=== PATIENT | female | born 1945 | race Caucasian/White ===

== ENCOUNTER → 2022-05-12 13:47 | Outpatient (CLI) | payer OTHER, SELFPAY ==
--- NOTE | 2022-05-12 | DI.ECHO.S_ITS ---
[facility] +---------+ : : [address] : : : : [id number] : : : : Phone: [phone]---------+ Echocardiogram Report + + :Name: MAURA KENNEDY Study Date: 05/12/2022 Height: 64 in : :[facility] ReadingLocation: Weight: 260 lb : : Gender: Female BSA: 2.2 m2 : :: 1945 Age: 76 yrs BP: 184/88 mmHg: :[facility] :Ordering Physician: PRISCILLA, : :LIAT Performed By: Alfredo Paniagua : :Referring: LIAT WELLS : + + Interpretation Summary 1) Normal left ventricular thickness, size, wall motion, and systolic function (EF 60-65%). 2) Normal right ventricular size and function. 3) No significant valvular abnormalities. 4) No prior Echo available for comparison. Procedure: A two-dimensional transthoracic echocardiogram with color flow and Doppler was performed. The study quality was technically adequate. There is no prior echocardiogram noted for this patient. The patient was in normal sinus rhythm during the exam. Left Ventricle: The left ventricle is normal in size and wall thickness. Left ventricular systolic function is normal. The ejection fraction is estimated to be 60-65%. There are no focal wall motion abnormalities. Diastolic function could not be accurately assessed due to unobtainable data. Right Ventricle: The right ventricle is normal in size and function. Atria: Both atria are normal in size. The interatrial septum grossly appears intact with no obvious evidence for an atrial septal defect. Mitral Valve: The mitral valve is normal in structure and function. There is no mitral regurgitation noted. Aortic Valve: The aortic valve is normal in structure and function. There is no aortic valve stenosis. No aortic regurgitation is present. Tricuspid Valve: The tricuspid valve is normal in structure and function. No tricuspid regurgitation. Pulmonary artery pressures cannot be estimated because of the lack of a measurable TR jet velocity. Pulmonic Valve: The pulmonic valve is normal in structure and function. There is a trace or physiologic amount of pulmonic regurgitation. Great Vessels: The aortic root is normal size. The dimensions of the ascending aorta are normal. The IVC is of normal diameter and collapses greater than 50% with a sniff. This suggests a low right atrial pressure of 3 mm Hg. Pericardium/ Pleura There is no pericardial effusion. There is no pleural effusion. MMode/2D Measurements & Calculations LVIDd: 4.6 cm LVOT diam: 1.9 cm LVIDs: 3.0 cm Ao root diam: 2.5 cm FS: 34.9 % asc Aorta Diam: 2.9 cm IVSd: 1.0 cm LVPWd: 1.0 cm LV reich. diameter/BSA (cm/m^2): 2.1 LV sys. diameter/BSA (cm/m^2): 1.4 LA A2 area: 15.2 cm2 RA long axis: 4.0 cm LA A4 area: 16.5 cm2 RA area: 9.8 cm2 LA length (vol): 5.4 cm RA vol: 20.3 ml LA vol: 39.2 ml RA : 9.3 ml/m2 LA vol index: 17.9 ml/m2 TAPSE: 3.2 cm Doppler Measurements & Calculations Ao V2 max: 141.3 cm/sec LVOT Max Pato: 107.2 cm/sec Ao V2 mean: 99.9 cm/sec LV V1 max P.6 mmHg Ao max P.0 mmHg LV V1 VTI: 25.8 cm Ao mean P.5 mmHg JANET(I,D): 2.2 cm2 Ao V2 VTI: 32.7 cm JANET(V,D): 2.1 cm2 sev ratio: 0.79 JANET indexed to BSA (cm^2/m^2): 1.0 MV E max pato: 83.1 cm/sec SV(LVOT): 72.7 ml MV A max pato: 96.7 cm/sec MV E/A: 0.86 Med Peak E' Pato: 5.6 cm/sec E/E' med: 14.8 Lat Peak E' Pato: 7.8 cm/sec E/E' lat: 10.7 E/e' average: 12.7 MV dec time: 0.25 sec Reading Physician:04:43 PM
--- NOTE | 2022-05-12 | DI.US.S_ITS ---
PROCEDURE: US CAROTID DOPPLER BI INDICATIONS: Hollenhorst plaque TECHNIQUE: Color and pulse Doppler interrogation was performed of both carotid systems, with image documentation and velocity measurements. COMPARISON: None. FINDINGS: Stenosis calculations are based on SRU (Society of Radiologists in Ultrasound) criteria. Right side: Brachial blood pressure: 152/71 mm Hg. Common carotid artery peak systolic velocity: 92 cm/sec. Internal carotid artery peak systolic velocity: 87 cm/sec. Internal carotid artery end diastolic velocity: 20 cm/sec. External carotid artery peak systolic velocity: 143 cm/sec. ICA/CCA peak systolic ratio: 1.0 . Jones scale imaging description: Mild scattered plaque Percent internal carotid artery stenosis: Less than 50% . Vertebral artery: Flow direction is antegrade. Left side: Brachial blood pressure: 155/76 mm Hg. Common carotid artery peak systolic velocity: 79 cm/sec. Internal carotid artery peak systolic velocity: 84 cm/sec. Internal carotid artery end diastolic velocity: 24 cm/sec. External carotid artery peak systolic velocity: 82 cm/sec. ICA/CCA peak systolic ratio: 1.1 . Jones scale imaging description: Mild scattered plaque Percent internal carotid artery stenosis: Less than 50% . Vertebral artery: Flow direction is antegrade. IMPRESSION: Less than 50% bilateral internal carotid artery stenosis. Dictated by: Dl Kelly [facility] Interpreted: Shanta Garcia MD on 05/12/2022 at 14:55 Transcribed by: MATT on 05/12/2022 at 14:56 Approved by: Shanta Garcia M.D. on 05/12/2022 at 15:15
== END ==
PROVIDERS: PCP Internal Medicine; Referring Provider Internal Medicine; Visit Provider Internal Medicine
DX: H34.219 Partial retinal artery occlusion, unspecified eye (principal); I65.23 Occlusion and stenosis of bilateral carotid arteries
CPT/HCPCS: 93306; 93880

== ENCOUNTER → 2022-06-09 12:00 | Outpatient (CLI) | payer OTHER, SELFPAY ==
[2022-06-09 12:57] LABS: COVID19 -Nasal RAPID Negative (Negative)
== END ==
PROVIDERS: PCP Internal Medicine; Visit Provider Surgery
DX: Z20.822 Contact with and (suspected) exposure to COVID-19 (principal); Z01.812 Encounter for preprocedural laboratory examination
CPT/HCPCS: 87635; C9803

== ENCOUNTER 2022-06-12 09:13 | Day surgery (SDC) | payer OTHER, SELFPAY ==
--- NOTE | 2022-06-12 | PATH_ITS ---
[facility] Accession Number: [id number] . 01 Material submitted: . PART A: gastrointestinal site - ANTRUM BIOPSY PART B: colon - ASCENDING COLON POLYPS . 01 Diagnosis: A. Stomach, Antrum, Biopsy: Antral mucosa with foveolar hyperplasia. Negative for Helicobacter by immunohistochemistry. Negative for intestinal metaplasia. Negative for dysplasia and malignancy. . B. 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 No evidence of malignancy or high grade dysplasia. MRV 06/15/2022 1751 Local . 01 Electronically signed: . Kallie Gilbert MD, Pathologist NPI- [id number] . 01 Gross description: . Part A: ANTRUM BIOPSY: Received in formalin are 3 fragment(s) of egan, soft tissue measuring 0.3 x 0.2 x 0.1 cm to 0.2 x 0.2 x 0.1 cm submitted entirely in 1 cassette(s) Part B: ASCENDING COLON POLYPS: Received in formalin are multiple fragment(s) of egan, soft tissue measuring 1.8 x 1.0 x 0.2 cm in aggregate submitted entirely in 1 cassette(s) /CPE 06/13/2022 0531 Local . 01 Microscopic: . A. An immunohistochemical stain was performed to evaluate for Helicobacter organisms and is negative. The control stain showed appropriate reactivity. . * This test was developed and its performance characteristics determined by [employer]. It has not been cleared or approved by the U.S. Food and Drug Administration. The FDA has determined that such clearance or approval is not necessary. This test is used for clinical purposes. It should not be regarded as investigational or for research. . 01 Pathologist provided ICD-10: D12.2, R11.2 . 01 CPT . 389851, 581184, D61028 Specimen Comment: A courtesy copy of this report has been sent to [phone] Performed at: 01 [facility] [address] [place] [id number] MD Anthony Blount MD Phone: [phone]
[2022-06-12 09:41] VITALS: BP 189/83; PULSE 73; RESP 15; TEMP 36; O2SAT 99; BMI 44.6
[2022-06-12] MEDS: SODIUM CHLORIDE 0.9% 1,000 ML 84 ML IV (10:02)
--- NOTE | 2022-06-12 10:02 | PM.HP.1 ---
History of Present Illness History of Present Illness Date Patient Seen: 06/12/22 Time Patient Seen: 10:02 Chief complaint: SDC Narrative: I reviewed my last note from May 21. No significant changes. Patient History Family & Social History Social History: household members none Tobacco & Substance use: Smoking Status Never smoker alcohol intake current alcohol intake frequency a few times a week Substance Use Type does not use Meds Home Medications and Allergies Home Medications Medication Instructions Recorded Confirmed Type atenolol 100 mg tablet mg 06/12/22 History losartan 50 mg tablet mg 06/12/22 History metformin 500 mg tablet mg 06/12/22 History rosuvastatin 20 mg tablet mg 06/12/22 History Allergies Allergy/AdvReac Type Severity Reaction Status Date / Time codeine Allergy Verified 06/12/22 09:45 Review of Systems Review of Systems ROS: Yes All systems reviewed with the patient and are negative except as otherwise documented Exam Vital Signs (past 8 hours): - 06/12/22 09:41 Temperature 96.8 F L Pulse Rate 73 Respiratory Rate 15 Blood Pressure 189/83 H Pulse Oximetry 99 Oxygen Delivery Method Room Air Oxygen Delivery Method Room Air Const General: cooperative HENMT Head: normal to inspection Eyes General: appearance normal, both eyes and all related structures Neck Neck: normal visual inspection Chest Chest: normal inspection of the chest Resp Effort & Inspection: normal respiratory effort Cardio Rate: regular rate GI Inspection: normal to inspection Skin General: no rashes or lesions noted Neuro General: patient alert and patient awake Extrem General: normal to inspection and no pedal edema Psych Appearance: grossly normal Assessment & Plan Assessment & Plan narrative: 76-year-old female with chronic intermittent nausea vomiting. She is a family history of colon cancer in 1 of her children. Both EGD and colonoscopy are pursued today. Time Spent With Patient Critical Care time: I spent a total of [] minutes of critical care time on this patient's care today; this time is exclusive of procedural time.
--- NOTE | 2022-06-12 10:04 | PM.PREOP ---
Pre-operative Note COVID-19 COVID-19 status: Negative Result date/Date tested (Pos, Neg/Pending): 06/09/22 Criteria for continued procedure: Possibility delay results in more complex future surgery or treatment Interval Note History & Physical reviewed/Exam performed by Physician: Yes Changes to H&P: No ASA Class (for procedural sedation): II
--- NOTE | 2022-06-12 11:51 | P.OP.EGD&C_ITS ---
Operative Date/Time/Diagnoses Date of procedure: 06/12/22 Time of procedure: 11:51 Pre-op diagnosis: Nausea vomiting family history of colon cancer Post-op diagnosis: same Procedure & Clinicians Study performed: EGD with biopsies and colonoscopy with hot snare polypectomy and Endoclip deployment Same procedure as scheduled: Yes Indications: Intermittent nausea vomiting. Family history of colon cancer. Surgeon: Gaurav Marx Procedure Notes SCOAP/Timeout: Done Procedure in detail: After the risks and benefits were explained, written and verbal informed consent was obtained. The patient was brought into the procedure room and placed into the left lateral decubitus position. Please see nurse drilling engineering manager notes for sedation details. The scope was introduced into the mouth through the bite block and advanced under direct visualization to the 2nd portion of the duodenum. The scope was slowly withdrawn carefully examining the mucosa for any defects or lesions. Retroflexed views were accomplished in the stomach. The stomach was decompressed, the scope was then removed from the patient who tolerated the procedure reasonably well. The patient was turned around a digital rectal examination accomplished. Grade 3 nonbleeding nonthrombosed hemorrhoids were noted. Scope was introduced into the rectum and advanced to the cecum as identified by the appendiceal orifice and ileocecal valve. The scope was slowly withdrawn to carefully examine the mucosa for any defects or lesions. Multiple direct views were made through the dentate line. The colon was decompressed scope removed from the patient who to lerated the procedure reasonably well. Pediatric colonoscope Bowel prep adequate Procedure time was prolonged 63 minutes total. (this was largely a function of the difficulty with the sizable polyp in the ascending colon and application of post polypectomy clips) Scope withdrawal time: 35 minutes Sedation minutes: 62 Complications: none Impression: 1. Duodenum: This was visually unremarkable from the bulb through to the 2nd portion. 2. Stomach: Mild gastropathy was appreciated with scattered erosive and nodular features especially throughout the antrum. Multiple biopsies were acquired for histopathology and exclusion of H pylori although I suspect this is NSAID induced injury. 3. Esophagus: The squamocolumnar junction correlated with the top of the gastric folds. GEJ was at 39 cm from the incisors. No acute erosive changes no stricturing no mass lesions. Subtle sliding hiatal hernia was noted. 4. Colon: Tortuous sigmoid. Diverticulosis was noted in the sigmoid. There was a diminutive polyp removed with cold snare in the ascending colon. There was a larger 12 mm polyp in the ascending colon 1 fold distal to the ileocecal valve. This was sessile. This was 12 mm by perhaps 6 mm. Initial polypectomy revealed that there was a small cuff of adenomatous mucosa that remained that must have slipped on the snare prior to application of the cautery. I therefore was required to remove the residual polyp with subsequent applications of the snare. I swapped out the 24 mm snare for the 10 mm snare to accomplish removal of this polyp. There were a couple of mildly oozing points of bleeding within the base of the polypectomy and I therefore applied 3 rotatable Endo clips to confirm hemostasis. The tiny polyp that was removed from mid ascending was lost among the fragments of larger polyp. Endoscopic diagnosis 1. Erosive gastropathy 2. Small sliding hiatal hernia 3. Colon polyps 4. Diverticulosis 5. Grade 3 hemorrhoids Post-procedure Plan for aftercare: 1. Await histopathology. 2. Try to minimize NSAID therapy. 3. Should symptoms of nausea vomiting persist in the absence of NSAIDs, further evaluation of gallbladder function would be appropriate. 4. Repeat colonoscopy 6 months considering the piecemeal removal of the ascending colon polyp. Disposition: PACU
[2022-06-12 11:55] VITALS: BP 131/65; PULSE 71; RESP 14; TEMP 36.4; O2SAT 99
[2022-06-12 12:00] VITALS: BP 166/71; PULSE 63; RESP 16; O2SAT 97
[2022-06-12 12:05] VITALS: BP 159/72; PULSE 60; RESP 17; O2SAT 98
[2022-06-12 12:15] VITALS: BP 164/74; PULSE 60; RESP 18; O2SAT 100
--- NOTE | 2022-06-12 12:22 | SUR.PHASEII ---
Discharge instructions reviewed with pt and she verbalized understanding.
== END 2022-06-12 12:33 | disposition home or self-care (01) ==
PROVIDERS: PCP Internal Medicine; Referring Provider Internal Medicine Gastroenterology; Visit Provider Internal Medicine Gastroenterology
PROC: 0DJ08ZZ Inspection of Upper Intestinal Tract, Via Natural or Artificial Opening Endoscopic (ICD-10-PCS; CPT 43235; principal; 2022-06-12 10:30)
PROC: 0DJD8ZZ Inspection of Lower Intestinal Tract, Via Natural or Artificial Opening Endoscopic (ICD-10-PCS; CPT 45378; 2022-06-12 10:30)
DX: D12.2 Benign neoplasm of ascending colon (principal); K29.70 Gastritis, unspecified, without bleeding; K44.9 Diaphragmatic hernia without obstruction or gangrene; K57.30 Diverticulosis of large intestine without perforation or abscess without bleeding; K64.2 Third degree hemorrhoids; R11.2 Nausea with vomiting, unspecified; Z80.0 Family history of malignant neoplasm of digestive organs
CPT/HCPCS: 45385; 43239; J2704; J3010

== ENCOUNTER → 2023-03-14 13:46 | Outpatient (CLI) | payer OTHER, SELFPAY ==
--- NOTE | 2023-03-16 02:23 | DI.NM.S_ITS ---
DATE OF SERVICE: 03/15/2023 INDICATIONS: Chest pain, with underlying diabetes mellitus, hypertension, hyperlipidemia, dizziness. RADIOPHARMACEUTICAL: 26.2 millicurie technetium-99m Myoview IV was injected at stress and 25.3 millicurie technetium-99m Myoview IV was injected at rest. CARDIAC STRESS: The patient underwent IV Lexiscan perfusion study as per standard protocol under the supervision of an attending staff. She remained hemodynamically stable. Resting blood pressure 150/84 and a heart rate 70 beats per minute. Baseline rhythm was sinus. During stress, no convincing ischemic changes seen. No significant arrhythmias seen. The patient has some shortness of breath. RAW DATA: There is a significant breast shadow seen. The patient's weight is 270 pounds. GATED STUDY: Resting LV ejection fraction 78% and stress LV ejection fraction 81% without any obvious wall motion abnormalities. Resting end-diastolic volume 95 mL. TID ratio 1.13, which is within normal limits. Lung/heart ratio 0.40, which is within normal limits. MYOCARDIAL PERFUSION SCAN: Stress supine, resting supine and stress prone images were compared to each other. Stress supine and resting supine images revealed small size, mildly decreased perfusion of mid to distal anterior wall which got completely resolved during stress prone images, however stress prone images developed new small size distal inferolateral defect that could be due to shifting breast tissue attenuation artifact. Overall, no convincing ischemia or infarction pattern. CONCLUSION: I will call this study a normal myocardial perfusion study with evidence of breast tissue attenuation artifact, as well as some shifting breast tissue attenuation artifact, without any convincing ischemia or infarction pattern. Preserved left ventricular function. No ischemic electrocardiographic changes. No significant arrhythmias. Overall, low-risk myocardial perfusion scan. Yesy Damon - VALENTIN/mylene/rigo doc#: [id number]/job#: [id number] dd: 03/15/2023 16:45:00 dt: 03/16/2023 02:09:00 DICTATING MD/COPIES TO: Suresh Mcintyre MD COPIES MNE: ANDRE;
== END ==
PROVIDERS: PCP Internal Medicine; Referring Provider Internal Medicine Cardiovascular Disease; Visit Provider Internal Medicine Cardiovascular Disease
DX: R07.89 Other chest pain (principal); E11.9 Type 2 diabetes mellitus without complications; I10 Essential (primary) hypertension; E78.5 Hyperlipidemia, unspecified; R42 Dizziness and giddiness
CPT/HCPCS: 78452; 93017; A9502; J2785

== ENCOUNTER 2024-06-04 11:39 | Day surgery (SDC) | payer OTHER, SELFPAY ==
--- NOTE | 2024-06-04 | PATH_ITS ---
[facility] Accession Number: [id number] No. of containers..01 Tissue . 01 Material submitted: . colon - RIGHT COLON BIOPSY . 01 Diagnosis: RIGHT COLON BIOPSY: Sessile serrated adenoma. [facility] 06/09/2024 1326 Local . 01 Electronically signed: . Anthony Blount MD, Pathologist NPI- [id number] . 01 Gross description: . Received in formalin with two patient identifiers and right colon, are two egan soft tissue fragments, 0.3 to 0.5 cm in greatest dimension. Submitted in A1. ([id number]) /MRV 06/09/20241325 Local . 01 Pathologist provided ICD-10: D12.2 . 01 CPT . 828501 Specimen Comment: A courtesy copy of this report has been sent to [phone] Performed at: [address] [id number] MD Anthony Blount MD Phone: [phone]
[2024-06-04 12:17] VITALS: BP 176/92; PULSE 97; RESP 14; TEMP 36.1; O2SAT 98
[2024-06-04] MEDS: LACTATED RINGERS 1,000 ML 42 ML IV (12:40)
--- NOTE | 2024-06-04 12:43 | PM.OP.COLON ---
Operative Date/Time/Diagnoses Date of procedure: 06/04/24 Pre-op diagnosis: See indication and findings Procedure & Clinicians Study performed: Colonoscopy Indications: Large colon polyp removed a little over year ago need for follow-up colonoscopy Surgeon: Christ Lua Procedure Notes Procedure in detail: After informed consent was obtained the patient was placed in left lateral decubitus position. The video colonoscope was placed rectum slowly advanced. Preparation was good. On slow withdrawal mucosa was carefully examined. The scope was removed. The patient tolerated procedure well. Blood loss none Complications none Sedation mac Findings 1. Quite tortuous colon with occasional left-sided diverticulosis 2. Possible 8 mm sessile polyp in the right colon Jumbo biopsy removed completely x2 3. No evidence of previous polypectomy just distally IC valve Will be in touch regarding your biopsies but this may well be her last colonoscopy.
[2024-06-04 13:22] VITALS: BP 108/55; PULSE 77; RESP 16; TEMP 36; O2SAT 93
[2024-06-04 13:27] VITALS: BP 127/67; PULSE 73; RESP 16; O2SAT 96
[2024-06-04 13:32] VITALS: BP 141/66; PULSE 72; RESP 20; O2SAT 95
[2024-06-04 13:41] VITALS: BP 141/88; PULSE 77; RESP 17; O2SAT 95
== END 2024-06-04 13:55 | disposition home or self-care (01) ==
PROVIDERS: PCP Internal Medicine; Referring Provider Internal Medicine Gastroenterology; Visit Provider Internal Medicine Gastroenterology
PROC: 0DJD8ZZ Inspection of Lower Intestinal Tract, Via Natural or Artificial Opening Endoscopic (ICD-10-PCS; CPT 45378; principal; 2024-06-04 13:00)
DX: D12.2 Benign neoplasm of ascending colon (principal); K57.30 Diverticulosis of large intestine without perforation or abscess without bleeding
CPT/HCPCS: 45380; J2704